=== PATIENT | male | born 1960 | race Caucasian/White ===

== ENCOUNTER 2017-01-11 16:40 | Outpatient (CLI) | payer MEDICARE, BC | END 2017-01-11 16:41 | disposition home or self-care (01) | LOC: HPCALD 16:40 | PROVIDERS: ATTEND Family Medicine | DX: L72.3 Sebaceous cyst (principal) | CPT/HCPCS: 87070; 87205 ==

== ENCOUNTER 2019-02-10 14:14 | Outpatient (CLI) | payer OTHER ==
--- NOTE | 2019-02-11 08:48 | RAD ---
CHEST TWO VIEWS: 02/10/19 Comparison is made with June 2014 exams. The heart is normal in size today. Median sternotomy sutures markie prior surgery. There is no congesti ve change or pleural effusion. No lobar consolidation was seen. There is little increased density in the right lateral hemithorax. There appears that there may have been some prior rib fractures here. I do not see them on the 2013 studies. IMPRESSION: Changes in the right lateral hemithorax that are probably prior rib injuries and pleural thickening. No gross mass was identified in this patient. Significant pulmonary disease might be easily hidden in his chest, however. If the clinical presentation remains worrisome, then a CT to remove all doubt mi ght be worth consideration. POS: HOME
== END 2019-02-10 14:15 | disposition home or self-care (01) ==
LOC: BURRAD 14:14
PROVIDERS: ATTEND Nurse Practitioner Family
DX: R63.4 Abnormal weight loss (principal); J98.4 Other disorders of lung
CPT/HCPCS: 71046

== ENCOUNTER 2019-02-24 13:09 | Outpatient (CLI) | payer OTHER ==
--- NOTE | 2019-02-24 20:32 | CT ---
CT OF THE THORAX WITH CONTRAST: 02/24/19 Comparison is made with a CT angio of the chest dated 07/14/14. There is no sign of mediastinal mass or adenopathy. 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 Coronary arterioscle rosis is evident. No pericardial effusions are present. The median sternotomy shows multiple broken w ires and the sternum did not heal well. Most of the fragments are ununited. There indeed are multiple old rib fractures along the right hemithorax that caused the shadows seen on the recent chest film. Some of these fractures are healed and others are ununited. They appear to have occurred since the 2014 CT. The lungs are clear. Emphysematous changes are seen in the lungs. There are no pleural effusions. A 1 cm calcified mass in the superior portion of the right lower lobe has the appearance of a calcified granuloma and has not changed over time. Scans into the upper abdomen showed no abnormalities of concern in the areas visualized. An epidural stimulator catheter is seen in the upper thoracic region. IMPRESSION: 1. Chronic parenchymal lung disease but no acute pulmonary findings. 2. Multiple old rib fractures that have occurred since 2013. Some well healed and some ununited. These cause some of the confusing shadows seen on chest x-ray. 3. 1 cm calcified granuloma, right lower lobe, stable. 4. No findings to explain the patient's weight loss. POS: HOME
== END 2019-02-24 13:10 | disposition home or self-care (01) ==
LOC: BURCT 13:09
PROVIDERS: ATTEND Nurse Practitioner Family
DX: Z01.812 Encounter for preprocedural laboratory examination (principal); R63.4 Abnormal weight loss; J84.10 Pulmonary fibrosis, unspecified; Z87.81 Personal history of (healed) traumatic fracture
CPT/HCPCS: 71260

== ENCOUNTER 2023-06-29 16:47 | Inpatient (IN) | payer MEDICARE ==
[2023-06-29] MEDS ORDERED: Polyethylene Glycol 3350 17 GM Packet PO PRN (17:12)
[2023-06-29] MEDS ORDERED: Acetaminophen 325 MG TAB PO PRN (17:12)
[2023-06-29] MEDS ORDERED: Gabapentin 400 MG CAP PO SCH (21:00)
[2023-06-29] MEDS: Trospium 20 MG TAB PO SCH (21:01)
[2023-06-29] MEDS: Lisinopril 5 MG TAB PO SCH (21:01)
[2023-06-29] MEDS: Mirtazapine 15 MG TAB PO SCH (21:02)
[2023-06-29] MEDS: Baclofen 10 MG TAB PO SCH (21:02)
[2023-06-29] MEDS: Rosuvastatin 10 MG TAB PO SCH (21:02)
[2023-06-29] MEDS: Ezetimibe 10 MG TAB PO SCH (21:02)
[2023-06-29] MEDS: DULoxetine 30 MG CAP PO SCH (21:02)
[2023-06-30 05:06] LABS: #Basophils 0.1 thou/uL (0.0-0.2); #Eosinphils 0.1 thou/uL (0.0-0.7); #Lymphocytes 3.5 thou/uL (1.20-3.40); #Monocytes 0.5 thou/uL (0.11-0.59); #Neutrophils 3.4 thou/uL (1.40-6.50); %Basophils 1.2 % (0.0-1.0); %Eosinophils 1.7 % (0.0-10.0); %Lymphocytes 46.4 % (21.0-51.0); %Monocytes 6.2 % (0.0-10.0); %Neutrophils 44.4 % (42.0-75.0); Hematocrit 34.8 % (42.0-52.0); Hemoglobin 11.5 g/dL (14.0-18.0); Mean Corpuscular HGB CONC 33.2 g/dL (32.0-36.0); Mean Corpuscular Hemoglobin 32.1 pg (27.0-31.0); Mean Corpuscular Volume 96.7 fl (78.0-98.0); Mean Platelet Volume 9.5 fL (7.4-10.4); Platelet Count 165 10x3/uL (130-400); RBC Distribution Width 11.8 % (11.5-14.5); Red Blood Cell (RBC) Count 3.59 mill/uL (4.70-6.10); White Blood Cell (WBC) Count 7.6 10x3/uL (4.8-10.8)
[2023-06-30 05:21] LABS: Anion Gap 11 mmol/L (10-20); BUN (Urea Nitrogen) 19 mg/dL (8.4-25.7); Calc. Creatinine Clearance 0 mL/min (70-130); Calcium 8.9 mg/dL (7.8-10.44); Carbon Dioxide 25 mmol/L (23-31); Chloride 112 mmol/L (98-107); Estimated GFR 82; Glucose 93 mg/dL (80-115); Potassium 3.8 mmol/L (3.5-5.1); Sodium 144 mmol/L (136-145)
[2023-06-30] MEDS: Trospium 20 MG TAB PO SCH ×2 (09:09→20:32)
[2023-06-30] MEDS: Multivit, Therapeutic 1 TAB PO SCH (09:09)
[2023-06-30] MEDS: DULoxetine 30 MG CAP PO SCH ×2 (09:09→20:34)
[2023-06-30] MEDS: Ezetimibe 10 MG TAB PO SCH (20:31)
[2023-06-30] MEDS: Baclofen 10 MG TAB PO SCH (20:33)
[2023-06-30] MEDS: Lisinopril 5 MG TAB PO SCH (20:34)
[2023-06-30] MEDS: Mirtazapine 15 MG TAB PO SCH (20:34)
[2023-06-30] MEDS: Rosuvastatin 10 MG TAB PO SCH (20:35)
[2023-07-01] MEDS ORDERED: Baclofen 10 MG TAB PO PRN (08:35)
[2023-07-01] MEDS: Multivit, Therapeutic 1 TAB PO SCH (09:05)
[2023-07-01] MEDS: DULoxetine 30 MG CAP PO SCH ×2 (09:06→20:38)
[2023-07-01] MEDS: Trospium 20 MG TAB PO SCH ×2 (09:06→20:38)
[2023-07-01] MEDS: Rosuvastatin 10 MG TAB PO SCH (20:36)
[2023-07-01] MEDS: Lisinopril 5 MG TAB PO SCH (20:37)
[2023-07-01] MEDS: Ezetimibe 10 MG TAB PO SCH (20:37)
[2023-07-01] MEDS: Mirtazapine 15 MG TAB PO SCH (20:37)
[2023-07-01] MEDS: Naproxen 500 MG TAB PO PRN (20:42)
[2023-07-02] MEDS: Trospium 20 MG TAB PO SCH ×2 (09:20→21:34)
[2023-07-02] MEDS: Multivit, Therapeutic 1 TAB PO SCH (09:20)
[2023-07-02] MEDS: Senokot S 8.6-50 MG TAB PO PRN (09:21)
[2023-07-02] MEDS: DULoxetine 30 MG CAP PO SCH ×2 (09:21→21:33)
[2023-07-02] MEDS ORDERED: Sodium Chloride 0.9% 500 ML IV SCH (12:15)
[2023-07-02] MEDS: Mirtazapine 15 MG TAB PO SCH (21:33)
[2023-07-02] MEDS: Rosuvastatin 10 MG TAB PO SCH (21:33)
[2023-07-02] MEDS: Ezetimibe 10 MG TAB PO SCH (21:33)
[2023-07-02] MEDS: Lisinopril 5 MG TAB PO SCH (21:34)
[2023-07-03] MEDS: DULoxetine 30 MG CAP PO SCH ×2 (09:09→20:46)
[2023-07-03] MEDS: Trospium 20 MG TAB PO SCH ×2 (09:10→20:45)
[2023-07-03] MEDS: Multivit, Therapeutic 1 TAB PO SCH (09:10)
[2023-07-03] MEDS: Mirtazapine 15 MG TAB PO SCH (20:46)
[2023-07-03] MEDS: Ezetimibe 10 MG TAB PO SCH (20:46)
[2023-07-03] MEDS: Rosuvastatin 10 MG TAB PO SCH (20:46)
[2023-07-03] MEDS: Bisacodyl 5 MG TAB PO PRN (20:51)
[2023-07-03] MEDS: Lisinopril 5 MG TAB PO SCH (20:52)
[2023-07-04] MEDS: Multivit, Therapeutic 1 TAB PO SCH (09:28)
[2023-07-04] MEDS: Trospium 20 MG TAB PO SCH ×2 (09:28→20:46)
[2023-07-04] MEDS: DULoxetine 30 MG CAP PO SCH ×2 (09:30→20:46)
[2023-07-04 11:11] VITALS: BMI 18.8
[2023-07-04] MEDS: Senokot S 8.6-50 MG TAB PO PRN (14:43)
[2023-07-04] MEDS: Rosuvastatin 10 MG TAB PO SCH (20:46)
[2023-07-04] MEDS: Bisacodyl 5 MG TAB PO PRN (20:46)
[2023-07-04] MEDS: Mirtazapine 15 MG TAB PO SCH (20:46)
[2023-07-04] MEDS: Ezetimibe 10 MG TAB PO SCH (20:46)
[2023-07-04] MEDS: Lisinopril 5 MG TAB PO SCH (20:49)
[2023-07-04] MEDS: Naproxen 500 MG TAB PO PRN (20:55)
[2023-07-05] MEDS: Trospium 20 MG TAB PO SCH ×2 (09:25→21:18)
[2023-07-05] MEDS: Multivit, Therapeutic 1 TAB PO SCH (09:25)
[2023-07-05] MEDS: DULoxetine 30 MG CAP PO SCH ×2 (09:25→21:18)
[2023-07-05] MEDS: Naproxen 500 MG TAB PO PRN ×2 (14:36→21:19)
[2023-07-05] MEDS: Mirtazapine 15 MG TAB PO SCH (21:18)
[2023-07-05] MEDS: Rosuvastatin 10 MG TAB PO SCH (21:18)
[2023-07-05] MEDS: Ezetimibe 10 MG TAB PO SCH (21:18)
[2023-07-05] MEDS: Lisinopril 5 MG TAB PO SCH (21:19)
[2023-07-06] MEDS: DULoxetine 30 MG CAP PO SCH ×2 (09:14→21:11)
[2023-07-06] MEDS: Trospium 20 MG TAB PO SCH ×2 (09:15→21:11)
[2023-07-06] MEDS: Multivit, Therapeutic 1 TAB PO SCH (09:15)
[2023-07-06] MEDS: Naproxen 500 MG TAB PO PRN ×2 (09:22→21:16)
[2023-07-06] MEDS: Rosuvastatin 10 MG TAB PO SCH (21:11)
[2023-07-06] MEDS: Mirtazapine 15 MG TAB PO SCH (21:11)
[2023-07-06] MEDS: Lisinopril 5 MG TAB PO SCH (21:11)
[2023-07-06] MEDS: Ezetimibe 10 MG TAB PO SCH (21:11)
[2023-07-07 06:35] LABS: Hematocrit 34.9 % (42.0-52.0); Hemoglobin 11.2 g/dL (14.0-18.0); Platelet Count 162 10x3/uL (130-400)
[2023-07-07] MEDS: Naproxen 500 MG TAB PO PRN ×2 (09:53→20:38)
[2023-07-07] MEDS: DULoxetine 30 MG CAP PO SCH ×2 (09:54→20:37)
[2023-07-07] MEDS: Multivit, Therapeutic 1 TAB PO SCH (09:54)
[2023-07-07] MEDS: Trospium 20 MG TAB PO SCH ×2 (09:54→19:40)
[2023-07-07] MEDS: Bisacodyl 5 MG TAB PO PRN (20:37)
[2023-07-07] MEDS: Ezetimibe 10 MG TAB PO SCH (20:38)
[2023-07-07] MEDS: Rosuvastatin 10 MG TAB PO SCH (20:39)
[2023-07-07] MEDS: Mirtazapine 15 MG TAB PO SCH (20:39)
[2023-07-07] MEDS: Lisinopril 5 MG TAB PO SCH (20:39)
[2023-07-08 05:38] VITALS: TEMP 98.1
[2023-07-08] MEDS: Multivit, Therapeutic 1 TAB PO SCH (09:48)
[2023-07-08] MEDS: DULoxetine 30 MG CAP PO SCH (09:48)
[2023-07-08] MEDS: Trospium 20 MG TAB PO SCH (09:49)
[2023-07-08] MEDS: Naproxen 500 MG TAB PO PRN (09:49)
[2023-07-08 16:44] VITALS: BP 110/71
== END 2023-07-08 16:40 | disposition home or self-care (01) | DRG 948 ==
LOC: BURMED 16:47
PROVIDERS: ADMIT Family Medicine; ATTEND Family Medicine
DX: R53.1 Weakness (principal); E86.0 Dehydration; R53.81 Other malaise; I65.21 Occlusion and stenosis of right carotid artery; R33.9 Retention of urine, unspecified; R25.2 Cramp and spasm; R41.0 Disorientation, unspecified; I25.10 Atherosclerotic heart disease of native coronary artery without angina pectoris; E78.5 Hyperlipidemia, unspecified; N31.8 Other neuromuscular dysfunction of bladder; Z98.890 Other specified postprocedural states; Z95.1 Presence of aortocoronary bypass graft; Z79.899 Other long term (current) drug therapy; Z82.49 Family history of ischemic heart disease and other diseases of the circulatory system; Z87.891 Personal history of nicotine dependence
CPT/HCPCS: 36415; 36416; 70450; 80048; 80053; 81001; 82565; 85014; 85018; 85025; 85049; 96360; 96361; 96372; G0378; J1650; J7030; J7050

== ENCOUNTER 2023-10-11 11:26 | Outpatient (CLI) | payer MEDICARE | END 2023-10-11 11:27 | disposition home or self-care (01) | LOC: BURRAD 11:26 | PROVIDERS: ATTEND Family Medicine | DX: M47.816 Spondylosis without myelopathy or radiculopathy, lumbar region (principal); Y92.009 Unspecified place in unspecified non-institutional (private) residence as the place of occurrence of the external cause | CPT/HCPCS: 72110 ==